=== PATIENT | male | born 1945 | race Caucasian/White ===

== ENCOUNTER 2016-07-30 21:29 | Emergency (ER) | payer MEDICARE, OTHER ==
[~2016-07-30] VITALS: Ht 172.7 cm; Wt 93.6 kg
[2016-07-30] MEDS ORDERED: NEXIUM 40MG40 MG PO (21:36)
[2016-07-30] MEDS ORDERED: CIALIS5 MG PO (21:36)
[2016-07-30] MEDS ORDERED: ZOCOR5 MG PO (21:36)
[2016-07-30] MEDS ORDERED: VITAMIN K0.1 MG PO (21:37)
[2016-07-30 21:45] VITALS: TEMP 98.5
[2016-07-30 22:05] LABS: BASO # 0.1 (0.0-0.2); BASO % 0.9 % (0.0-2.0); EOS # 0.3 (0.0-0.7); EOS % 3.4 % (0-4.0); GRAN # 5.9 (1.4-6.5); GRAN % 68.5 % (42.2-75.2); HEMATOCRIT 43.8 % (42.0-52.0); HEMOGLOBIN 14.8 g/dl (13.5-18.0); LYMPH # 1.6 (1.2-3.4); LYMPH % 18.3 % (20.0-51.0); MEAN CELL VOLUME 88 fl (80.0-100.0); MEAN CORPUSCULAR HEMOGLOBIN 30 pg (27.0-31.0); MEAN CORPUSCULAR HGB CONC 34 g/dl (33.0-37.0); MEAN PLATELET VOLUME 10.4 fl (7.4-10.4); MONO # 0.7 (0.1-0.6); MONO % 8.4 % (1.7-9.3); PLATELET COUNT 156 K/mm3 (130-400); RED BLOOD COUNT 4.96 M/mm3 (4.20-5.60); REDCELL DISTRIBUTION WIDTH-CV 13.3 % (11.5-14.5); WHITE BLOOD COUNT 8.6 K/mm3 (4.8-10.8)
[2016-07-30 22:15] LABS: ADJUSTED CALCIUM 8.6 mg/dL (8.4-10.2); ALBUMIN 4.5 gm/dL (3.5-5.0); CREATININE, serum 1.09 mg/dL (0.66-1.25); POTASSIUM 3.9 mmol/L (3.4-5.0); TOTAL PROTEIN 7.7 gm/dL (6.4-8.2)
[2016-07-30 22:22] LABS: PH 5 (5-8); URINE APPEARANCE Hazy; URINE BILIRUBIN Negative (NEGATIVE); URINE BLOOD 3+ (NEGATIVE); URINE COLOR Yellow; URINE GLUCOSE Negative (NEGATIVE); URINE KETONE Trace (NEGATIVE); URINE UROBILINOGEN Negative (NEGATIVE)
[2016-07-30 22:27] LABS: SQUAMOUS EPITHELIAL 0-2 /hpf; URINE WBC None Seen /hpf
[2016-07-30] MEDS ORDERED: ZOFRAN8 MG PO (23:01)
[2016-07-30] MEDS ORDERED: PERCOCET 325 MG1 TA2 PO (23:01)
[2016-07-30 23:16] VITALS: BP 128/84; PULSE 71
[2016-07-30] MEDS ORDERED: FLOMAX 0.40.4 MG/CAP PO (23:23)
== END 2016-07-30 23:29 | disposition home or self-care (01) ==
LOC: COL.ER 21:29
PROVIDERS: Emergency Medicine
DX: N20.1 Calculus of ureter (principal)
CPT/HCPCS: J1170; J1885; J2405; J7030